=== PATIENT | female | born 2000 | race Caucasian/White ===

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

== ENCOUNTER 2022-03-02 16:43 | Inpatient (IN) | payer OTHER ==
[2022-03-02] MEDS ORDERED: DINOPROSTONE 10 MG INSERT.ER VAGINAL ONE (17:48)
--- NOTE | 2022-03-02 18:32 | P.HPOB ---
History of Present Illness H&P Date: 03/02/22 Chief Complaint: Cholestasis, gestational hypertension rule out preeclampsia This patient is a 22-year-old 1 para 0 female estimated date of confinement 03/23/2022 estimated gestational age 37-0/7 weeks who presented to the office earlier this afternoon and saw the obstetrical nurse for an OB visit. Patient's care is per Dr. Nugent and she didn't develop itching at approximately 35-5/7 weeks' gestation. At that time cholestasis labs were drawn and her bile acids were elevated and 44 which is consistent with cholestasis. Patient was also noted to have elevated blood pressures today. Biophysical profile the office was 6 out of 8. I discussed these findings with the patient and her significant other and reviewed the indications for delivery with cholestasis at 37 weeks. Recommend she proceed with Celestone treatment, Cervidil placement and trial of vaginal delivery. Review of Systems Genitourinary: Reports Menstruation: Reports amenorrhea Past Medical History Past Medical History: No Reported History History of Any Multi-Drug Resistant Organisms: None Reported Past Surgical History: No Surgical Hx Reported Past Anesthesia/Blood Transfusion Reactions: No Reported Reaction Past Psychological History: No Psychological Hx Reported Smoking Status: Former smoker, Vaper Past Alcohol Use History: None Reported Past Drug Use History: None Reported Medications and Allergies Home Medications Medication Instructions Recorded Confirmed Type Sertraline HCl [Zoloft] 100 mg PO HS 01/31/18 03/02/22 History Pnv No.95/Ferrous Fum/Folic AC 1 tab PO DAILY 03/02/22 03/02/22 History [ Multivitamin Tablet] Allergies Allergy/AdvReac Type Severity Reaction Status Date / Time No Known Allergies Allergy Verified 03/02/22 17:08 Exam Intake and Output 03/02/22 03/02/22 03/02/22 06:59 14:59 22:59 Other: Weight 97.522 kg - OBG Physical Exam Abdomen: bowel sounds normal, no diffuse tenderness, no bruit present, no guarding noted, no hepatomegaly, no splenomegaly, no mass Vulva: both: normal Vagina: normal moisture, no discharge Cervix: no lesion (Cervix is closed and thick), no discharge Uterus: enlarged Results blood work shows she is O positive, hepatitis B is negative, RPR is nonreactive, rubella is immune, most recent ultrasound shows estimated weight of 5 lbs. 10 oz. vertex presentation by last is on February 21 for 44.9. ALTs was mildly elevated. Group B strep was unavailable Assessment and Plan Assessment: This is a 22-year-old 1 para 0 female 37-0/7 weeks gestation with cholestasis and gestational hypertension. Labs are pending in regards to preeclampsia. Per current recommendations we plan to proceed with delivery at 37 weeks. Cervix is unfavorable therefore I'm going to give her a Cervidil and also Celestone at this time and anticipate vaginal delivery. (1) 37 weeks gestation of Current Visit: Yes Status: Acute Code(s): Z3A.37 - 37 WEEKS GESTATION OF SNOMED Code(s): 26853399 (2) Cholestasis during Current Visit: Yes Status: Acute Code(s): O26.619 - LIVER AND BILIARY TRACT DISORD IN , UNSP TRIMESTER; K83.1 - OBSTRUCTION OF BILE DUCT SNOMED Code(s): 858113077 (3) Gestational hypertension Current Visit: Yes Status: Acute Code(s): O13.9 - GESTATIONAL HTN W/O SI GNIFICANT PROTEINURIA, UNSP TRIMESTER SNOMED Code(s): 24984595
[2022-03-02] MEDS: BETAMET ACET-BETAMETH SOD PHOS 6 MG/ML MDV IM SCH (18:50)
[2022-03-02 19:30] LABS: Basophils # (A) 0.1 k/uL (0-0.2); Basophils % (A) 0 %; Eosinophils % (A) 0 %; HGB 10.6 gm/dL (11.4-16.0); Hypochromasia Slight; Lymphocytes # (A) 2.3 k/uL (1.0-4.8); Lymphocytes % (A) 18 %; MCH 28.4 pg (25.0-35.0); MCHC 31.2 g/dL (31.0-37.0); MCV 90.9 fL (80.0-100.0); Mean Platelet Volume 11.1; Monocytes # (A) 0.6 k/uL (0-1.0); Monocytes % (A) 5 %; Neutrophils # (A) 9.9 k/uL (1.3-7.7); Neutrophils % (A) 76 %; Platelet Count 244 k/uL (150-450); RBC 3.75 m/uL (3.80-5.40); RDW 13.9 % (11.5-15.5); WBC 13.1 k/uL (3.8-10.6)
[2022-03-02 19:36] LABS: ALT 29 U/L (4-34); AST 26 U/L (14-36); African American GFR (CKD) >90 (>60 ml/min/1.73 sqM); Blood Urea Nitrogen 12 mg/dL (7-17); LDH 532 U/L (313-618); Non-African American GFR(CKD) >90 (>60 ml/min/1.73 sqM); Uric Acid 4.9 mg/dL (3.7-7.4)
[2022-03-02 19:50] LABS: INR 0.8 (<1.2); Partial Thromboplastin Time 22.2 sec (22.0-30.0); Prothrombin Time 9.4 sec (9.0-12.0)
[2022-03-02 21:47] LABS: Appearance,Urine Cloudy (Clear); Bilirubin,Urine Negative (Negative); Blood,Urine Negative (Negative); Color,Urine Yellow; Glucose,Urine (UA) Negative (Negative); Hyaline Casts,Urine 3 /lpf (0-2); Ketones,Urine Negative (Negative); Leukocyte Esterase,Urine Negative (Negative); Mucus,Urine Many /hpf; Nitrite,Urine Negative (Negative); PH, Urine 6.5 (5.0-8.0); Protein,Urine 2+ (Negative); RBC,Urine 1 /hpf (0-5); Specific Gravity,Urine 1.031 (1.001-1.035); Squamous Epithelial Cell,Urine 1 /hpf (0-4); Urobilinogen,Urine <2.0 mg/dL (<2.0); WBC,Urine 3 /hpf (0-5)
[2022-03-02 21:54] LABS: Creatinine,Urine Random 230.8 mg/dL; Protein/Creatinine Ratio,Urine 0.412
[2022-03-03] MEDS ORDERED: TERBUTALINE 1 MG/ML VIAL SQ PRN (04:45)
[2022-03-03] MEDS ORDERED: CARBOPROST TROMETHAMINE 250 MCG/ML 1 ML AMP IM PRN (04:45)
[2022-03-03] MEDS ORDERED: OXYTOCIN 30 UNITS/500 ML NS 30 UNIT in SALINE 1 500ML.BAG IV SCH (04:45)
[2022-03-03] MEDS ORDERED: METHYLERGONOVINE 0.2 MG/ML 1 ML AMP IM PRN (04:45)
[2022-03-03] MEDS ORDERED: OXYTOCIN 10 UNIT/ML 1 ML VIAL IM PRN (04:45)
[2022-03-03] MEDS ORDERED: LIDOCAINE 0.5% (PF) 5 MG/ML (50 ML SDV) SQ PRN (04:45)
[2022-03-03] MEDS: LACTATED RINGERS 1,000 ML IV SCH ×3 (05:26→13:03)
[2022-03-03] MEDS: BETAMET ACET-BETAMETH SOD PHOS 6 MG/ML MDV IM SCH (06:55)
[2022-03-03] MEDS ORDERED: SODIUM CHLORIDE 0.9% 100 ML BAG ONE (11:47)
[2022-03-03] MEDS ORDERED: fentaNYL (PF) 50 MCG/ML 5 ML AMP ONE (11:47)
[2022-03-03] MEDS ORDERED: ROPIVACAINE 5MG/ML 20ML VIAL ONE (11:47)
[2022-03-03] MEDS: BUTORPHANOL 1 MG/ML 1 ML VIAL IV PRN ×3 (13:02→20:37)
[2022-03-03] MEDS ORDERED: AMPICILLIN 2,000 MG in SODIUM CHLORIDE 0.9% 100 ML IVPB STA (20:49)
--- NOTE | 2022-03-03 20:49 | P.PN ---
Progress Note - Text Progress Note Date: 03/03/22 heart tones are reassuring. Patient's cervix is remained 4-5 cm for quite a bit of time. Blood pressures remain elevated but are not anything need to be treated. I did offer this patient with section because I feel that she has not made descent or adequate dilation for quite a period of time. She wishes to continue and at this time I have no other indication to proceed with section. I have recommended we started on antibiotics appear she's been to be in labor for quite a long more period of time. She is agreeable to this.
[2022-03-03] MEDS ORDERED: CITRIC ACID-SODIUM CITRATE 15 ML CUP PO ONE (22:49)
[2022-03-03] MEDS ORDERED: OXYTOCIN 30 UNITS/500 ML NS BAG IV ONE (23:12)
[2022-03-03] MEDS ORDERED: MORPHINE SULFATE (PF) 0.3 MG/0.3 ML SYR ONE (23:12)
[2022-03-03] MEDS ORDERED: NALBUPHINE 10 MG/ML (1 ML AMP) ONE (23:12)
[2022-03-04] MEDS ORDERED: diphenhydrAMINE 50 MG/ML 1 ML VIAL IVP PRN (00:06)
[2022-03-04] MEDS ORDERED: ONDANSETRON 4 MG/2 ML VIAL IVP PRN (00:06)
[2022-03-04] MEDS ORDERED: ZOLPIDEM 5 MG TAB PO PRN (00:06)
[2022-03-04] MEDS ORDERED: SIMETHICONE 80 MG CHEWABLE PO PRN (00:06)
[2022-03-04] MEDS ORDERED: NALOXONE 0.4 MG/ML 1 ML VIAL IV PRN (00:06)
[2022-03-04] MEDS ORDERED: LANOLIN CREAM 5 GM TUBE TOPICAL PRN (00:06)
[2022-03-04] MEDS ORDERED: METOCLOPRAMIDE 5 MG/ML 2 ML VIAL IVP PRN (00:06)
[2022-03-04] MEDS ORDERED: OXYTOCIN 30 UNITS/500 ML NS 30 UNIT in SALINE 1 500ML.BAG IV SCH (00:15)
--- NOTE | 2022-03-04 00:21 | P.OP ---
Date of Procedure: 03/04/22 Preoperative Diagnosis: #1: 37 and one sevenths week intrauterine . #2: Cholestasis of #3: Gestational hypertension. #4: Failure to progress in labor Postoperative Diagnosis: #1: Same. #2: Straight occiput posterior presentation Procedure(s) Performed: Primary low transverse section Anesthesia: spinal Rural Route Mail Carrier #1: Cash Vásquez Rural Route Mail Carrier #2: Fidelina Forbes Pathology: other (Placenta) Condition: stable Disposition: observation Indications for Procedure: Please see dictated H&P for intimate details of this patient's admission. Brief summary this pleasant 22-year-old 1 para 0 female 37 and one sevenths weeks gestation who is admitted to labor and delivery for evaluation of hypertension. Patient also had a diagnosis of cholestasis. Patient's found to have gestational hypertension and persistent blood pressure elevations without evidence of preeclampsia. Patient and I discussed options and elected proceed with Cervidil induction of labor. Patient has Cervidil placed next morning she is fingertip dilated. This time she artificial rupture membranes for clear fluid. Labor is induced with Pitocin. Patient progresses and unfortunately has 2 epidurals placed without significant relief. Patient also does receive some IV Stadol. Patient progresses to approximately 5 cm dilated despite adequate labor and a prolonged period of time and the anterior lip of the cervix does begin to swell. Discussed options with patient and her partner we continue to watch for a while. Patient continues to have no progression the head and further dilation therefore she requests is hearing section. Patient does understand the surgery and risks and risks of infection, bleeding, possible injury bowel, bladder, vessels, and/or other organs. All the patient's questions are answered and a written consent is obtained. Operative Findings: This is a vigorous viable male Apgars were 9 and 9 delivery times 2331 hrs. Infant was in the straight occiput posterior presentation. There is a nuchal cord 1. Infant appeared grossly normal and had good cry. Description of Procedure: This patient had a Florence catheter placed to straight drain. She is subsequently taken to the operating room where she sat up and appropriate timeout is done. Spinal anesthetic is administered at this time. With adequate level of anesthesia she has abdominal prep and drape. Scalpels and taken Pfannenstiel skin incision is then made. Second scalpel is taken down the fascia the fascia scored with a knife. Fascial incision extended bilaterally using Nick scissors. Fascia is then dissected off the rectus muscles sharply. Rectus muscles are peritoneum identified and entered sharply. Peritoneal incision extended superior and inferior without difficulty. Bladder blade is then placed. Bladder peritoneum was taken sharply off the lower uterine segment. Scalpels and taken low transverse uterine incision is then made. Using a hemostat I enter the uterine cavity bluntly. There is loss of clear fluid. Infant is found to be in the straight occiput posterior presentation. Infant's head is then guided through the incision is a small amount. Mouth and nares are bulb suctioned. There is a nuchal cord which is reduced. With more fundal pressure we then deliver the rest this infant's body. This is a vigorous viable male infant Apgars are 9 and 9 delivery time is 2330 hrs. After delivery of the the umbilical cord is doubly clamped and cut appears to be trivascular. The placenta is then manually extracted intact. Uterus is then externalized and uterine incision demarcated with Carvajal clamps. Uterine incision is then closed using 0 Vicryl running locked fashion 2 layers. Excellent hemostasis is noted. Bladder peritoneum was then closed using a 3-0 Vicryl. Excess fluid is removed from the abdomen and pelvis. Uterus, tubes, ovaries appear normal for term gestation. Uterus placed back in the abdomen. Parietal peritoneum was then identified and closed using 0 Vicryl running fashion. Rectus muscles reapproximated in 0 Vicryl interrupted fashion. Fascial incision is closed using 0 PDS. Fascial incision is intact and hemostatic. Subcutaneous tissues and closed using a 3-0 Vicryl. Skin is and closed using wally. All counts are correct 3. No complications. and mother taken to the birthing suite in satisfactory condition.
[2022-03-04] MEDS ORDERED: AMPICILLIN 1,000 MG in SODIUM CHLORIDE 0.9% 50 ML IVPB SCH (01:00)
[2022-03-04] MEDS: LACTATED RINGERS 1,000 ML IV SCH ×3 (02:09→18:29)
[2022-03-04] MEDS: ACETAMINOPHEN TAB 500 MG TAB PO SCH ×3 (04:24→17:13)
[2022-03-04] MEDS: diphenhydrAMINE 25 MG CAP PO PRN ×3 (04:24→17:22)
[2022-03-04] MEDS: IBUPROFEN 600 MG TAB PO SCH ×4 (06:10→20:23)
--- NOTE | 2022-03-04 07:13 | P.PNOBGPC ---
Subjective - Subjective Patient reports: Reports appetite normal, Reports voiding normally, Reports pain well controlled, Reports ambulating normally : doing well Objective - Vital Signs Latest vital signs: Vital Signs Temp Pulse Resp BP Pulse Ox 03/04/22 04:46 86 18 03/04/22 01:10 98.2 F 86 18 120/64 97 03/04/22 00:55 98.2 F 90 18 132/71 97 03/04/22 00:40 97 18 129/64 97 03/04/22 00:25 100 19 149/83 97 03/04/22 00:10 97.7 F 97 19 136/78 97 03/03/22 23:55 97.7 F 104 H 16 156/95 97 Intake and Output 03/03/22 03/04/22 03/04/22 22:59 06:59 14:59 Output Total 800 1170 Balance -800 -1170 Output: Urine 800 1000 Estimated Blood Loss 170 Other: Voiding Method Indwelling Catheter - Exam Lungs: bilateral: normal Chest: Normal S1, Normal S2 Extremities: Present: normal Abdomen: Present: normal appearance, soft. Absent: distention, tenderness Incision: Present: normal, dry, intact Uterus: Present: normal, firm Assessment and Plan Assessment: Postoperative day #1. Patient is resting without new complaints. Vital signs are stable and she is afebrile. Uterus is firm nontender and her incision is intact and dry. CBC is pending. Plan today is to discontinue her catheter, encourage ambulation, allow the patient to shower, and continue routine postoperative care (1) 37 weeks gestation of Current Visit: Yes Status: Acute Code(s): Z3A.37 - 37 WEEKS GESTATION OF SNOMED Code(s): 94193025 (2) Cholestasis during Current Visit: Yes Status: Acute Code(s): O26.619 - LIVER AND BILIARY TRACT DISORD IN , UNSP TRIMESTER; K83.1 - OBSTRUCTION OF BILE DUCT SNOMED Code(s): 965600052 (3) Gestational hypertension Current Visit: Yes Status: Acute Code(s): O13.9 - GESTATIONAL HTN W/O SIGNIFICANT PROTEINURIA, UNSP TRIMESTER SNOMED Code(s): 60746258
[2022-03-04] MEDS: SENNOSIDES-DOCUSATE SODIUM 1 EACH TAB PO SCH ×2 (07:56→20:22)
--- NOTE | 2022-03-04 08:33 | P.PN ---
Progress Note - Text Progress Note Date: 03/04/22 Patient doing well. Denies weakness or paresthesia. Denies headache. Pain controlled Back spinal site c/d A/P POD#1 s/p w/ spinal duramorph - doing well
[2022-03-04] MEDS ORDERED: KETOROLAC 15 MG/ML 1 ML VIAL IVP SCH (12:00)
[2022-03-05] MEDS: ACETAMINOPHEN TAB 500 MG TAB PO SCH ×6 (00:06→22:38)
[2022-03-05] MEDS: LACTATED RINGERS 1,000 ML IV SCH (02:05)
[2022-03-05] MEDS: IBUPROFEN 600 MG TAB PO SCH ×3 (03:04→18:13)
[2022-03-05] MEDS: diphenhydrAMINE 25 MG CAP PO PRN (03:29)
--- NOTE | 2022-03-05 07:32 | P.PNOBGPC ---
Subjective - Subjective Patient reports: Reports appetite normal, Reports voiding normally, Reports pain well controlled, Reports ambulating normally : doing well Objective - Vital Signs Latest vital signs: Vital Signs Temp Pulse Resp BP Pulse Ox 03/05/22 00:20 98.5 F 93 16 135/83 98 03/04/22 19:40 97.8 F 98 16 143/99 97 03/04/22 16:00 98.6 F 78 18 148/90 95 03/04/22 13:33 98.1 F 102 H 18 110/66 95 03/04/22 08:00 98.2 F 88 18 129/78 99 Intake and Output 03/04/22 03/05/22 03/05/22 22:59 06:59 14:59 Output Total 1150 Balance -1150 Output: Urine 1150 Other: # Voids 1 # Bowel Movements 1 Assessment and Plan Assessment: Postoperative day #2. Patient is resting without new complaints. She did have some elevated blood pressures yesterday 148/90 and 143/99 but did not require medication. Incision is intact and dry. Patient is tolerating regular diet, ur inating without difficulty, and having adequate pain control. Plan today is to continue watching her blood pressures and continue routine postoperative care. At this point I do not think she needs oral antihypertensives and if her blood pressures remain okay she could potentially go home tomorrow. (1) 37 weeks gestation of Current Visit: Yes Status: Acute Code(s): Z3A.37 - 37 WEEKS GESTATION OF SNOMED Code(s): 36148443 (2) Cholestasis during Current Visit: Yes Status: Acute Code(s): O26.619 - LIVER AND BILIARY TRACT DISORD IN , UNSP TRIMESTER; K83.1 - OBSTRUCTION OF BILE DUCT SNOMED Code(s): 662140024 (3) Gestational hypertension Current Visit: Yes Status: Acute Code(s): O13.9 - GESTATIONAL HTN W/O SIGNIFICANT PROTEINURIA, UNSP TRIMESTER SNOMED Code(s): 61515510
[2022-03-05 08:14] LABS: Basophils % (A) 0 %; Eosinophils % (A) 0 %; HCT 28.9 % (34.0-46.0); HGB 9.2 gm/dL (11.4-16.0); Hypochromasia Slight; Lymphocytes # (A) 2.2 k/uL (1.0-4.8); Lymphocytes % (A) 12 %; MCH 29.1 pg (25.0-35.0); MCHC 31.8 g/dL (31.0-37.0); MCV 91.6 fL (80.0-100.0); Mean Platelet Volume 9.5; Monocytes # (A) 0.9 k/uL (0-1.0); Monocytes % (A) 5 %; Neutrophils # (A) 15.4 k/uL (1.3-7.7); Neutrophils % (A) 82 %; Platelet Count 243 k/uL (150-450); RBC 3.16 m/uL (3.80-5.40); RDW 14.7 % (11.5-15.5); WBC 18.9 k/uL (3.8-10.6)
[2022-03-05] MEDS: SENNOSIDES-DOCUSATE SODIUM 1 EACH TAB PO SCH ×2 (08:22→19:33)
[2022-03-06] MEDS: LABETALOL 100 MG TAB PO SCH ×3 (00:51→13:20)
[2022-03-06] MEDS: IBUPROFEN 600 MG TAB PO SCH ×4 (02:16→21:14)
[2022-03-06] MEDS: ACETAMINOPHEN TAB 500 MG TAB PO SCH ×5 (05:36→23:26)
--- NOTE | 2022-03-06 07:43 | P.PNOBGPC ---
Subjective - Subjective Principal diagnosis: Status post primary section postoperative day #3 Interval history: Patient is doing well. She denies any complaints. She is passing flatus and bowel movement. She is urinating without difficulty. Her pain is well- controlled with ibuprofen and Tylenol. Patient reports: Reports appetite normal, Reports voiding normally, Reports pain well controlled, Reports ambulating normally [place]: doing well, nursing well Objective - Vital Signs Latest vital signs: Vital Signs Temp Pulse Resp BP Pulse Ox 03/06/22 03:50 98.4 F 79 14 157/82 95 03/06/22 00:25 163/91 03/06/22 00:05 99.1 F 73 16 165/87 97 03/05/22 16:00 98.4 F 91 16 140/88 03/05/22 08:00 99.1 F 83 18 151/84 97 Intake and Output 03/05/22 03/06/22 03/06/22 22:59 06:59 14:59 Other: # Voids 1 2 - Exam Extremities: Present: normal. Absent: tenderness Abdomen: Present: normal appearance, soft. Absent: distention, tenderness Incision: Present: normal, dry, intact Uterus: Present: normal, firm. Absent: tenderness - Labs Labs: Abnormal Lab Results - Last 24 Hours (Table) 03/05/22 Range/Units 07:42 WBC 18.9 H (3.8-10.6) k/uL RBC 3.16 L (3.80-5.40) m/uL Hgb 9.2 L (11.4-16.0) gm/dL Hct 28.9 L (34.0-46.0) % Neutrophils # 15.4 H (1.3-7.7) k/uL Assessment and Plan Assessment: Status post primary section postoperative day #3 Elevated blood pressures -just started on labetalol Plan: Blood pressures were slightly elevated this morning in the 160s over 90s. She was started on labetalol 100 mg twice a day this morning. We'll observe at least till noon time today and make sure her blood pressures have come down. As long as her blood pressures are stable, will discharge home on labetalol later today. Patient states her itching is completely gone now.
--- NOTE | 2022-03-06 07:53 | P.MSEPDOC ---
Presenting Problems - Arrival Data Date of Arrival on Unit: 03/02/22 Time of Arrival on Unit: 17:00 Mode of Transport: Ambulatory - Complaint OB-Reason for Admission/Chief Complaint: PIH Comment: pt was sent over from the office for PI workup Medical History - Information : 1 Para: 0 Term: 0 : 0 Abortions: Spontaneous or Elective: 0 Number of Living Children: 0 - Gestational Age Gestational Age by CHARITY (wks/days): 37 Weeks and 2 Days Review of Systems - Review of Systems Constitutional: No problems Breast: No problems ENT: No problems Cardiovascular: No problems Respiratory: No problems Gastrointestinal: No problems Genitourinary: No problems Musculoskeletal: No problems Neurological: No problems Skin: No problems Vital Signs - Temperature Temperature: 98.4 F Temperature Source: Oral - Pulse Right Brachial Pulse Rate: 79 Pulse Assessment Method: Automatic Cuff - Respirations Respiratory Rate: 14 Oxygen Delivery Method: Room Air O2 Sat by Pulse Oximetry: 95 - Blood Pressure Right Arm Blood Pressure: 157/82 Blood Pressure Mean: 107 Blood Pressure Source: Automatic Cuff Physician Notification - Physician Notified New Order Received: Yes - Notification Comment Comment: RN notifed of Pt's elevated BP of 148/90 at 1600 and 151/92 at 1700. RN to call Dr. Vásquez if BP >160 SBP or >100 DBP. No further orders at this time. Maternal Triage Index - Maternal Triage Index Presenting for scheduled procedure w/no complaint: Yes - Scheduled/Requesting Priority 5 Scheduled/Requesting Priority 5: Yes Criteria Met for Priority 5: pt was sent over from the office for PIH workup Disposition - Disposition OB Disposition: Admit I agree with the RN Medical Screening Exam: Yes Case reviewed; plan agreed upon as documented in EMR&OBIX.: Yes Diagnosis: GESTATIONAL HTN W/O SIGNIFICANT PROTEINURIA, THIRD TRIMESTER
[2022-03-06 11:38] VITALS: RESP 16
[2022-03-06] MEDS: SENNOSIDES-DOCUSATE SODIUM 1 EACH TAB PO SCH ×3 (11:40→20:37)
[2022-03-06] MEDS ORDERED: LABETALOL 100 MG TAB PO STA (13:18)
[2022-03-06] MEDS: LABETALOL 200 MG TAB PO SCH (20:27)
[2022-03-06 23:32] VITALS: TEMP 98.7
[2022-03-07] MEDS: IBUPROFEN 600 MG TAB PO SCH ×3 (01:03→08:52)
[2022-03-07 08:06] VITALS: BP 133/84; PULSE 87
[2022-03-07] MEDS: SENNOSIDES-DOCUSATE SODIUM 1 EACH TAB PO SCH (08:07)
[2022-03-07] MEDS: LABETALOL 200 MG TAB PO SCH (08:52)
--- NOTE | 2022-03-07 08:58 | P.DS ---
Providers Date of admission: 03/02/22 17:44 Expected date of discharge: 03/07/22 Attending physician: Maria C Nugent Primary care physician: Stated None Hospital Course: This is a 22-year-old female 1 para 0 at 37-0/7 weeks who initially presented for Cervidil cervical ripening followed by oxytocin induction of labor due to cholestasis of and gestational hypertension. She did end up with a primary low transverse section on 03/03/2022 due to failure to progress. She delivered a viable male on 03/03/2022 with infant weight of 5 lbs. 9 oz. Her postoperative course initially was uncomplicated however she did start to have increased blood pressures after a couple days. She was placed on labetalol and this was increased to 200 mg twice a day. Today her blood pressures have normalized on the medication. She is passing flatus and bowel movement. She is breast-feeding. She does have a breast pump at home. Vital signs are stable. Abdomen is soft with positive bowel sounds 4. Incision is clean dry and intact with wally in place. Extremities show negative Homans. Impression is status post a very low transverse section postoperative day #4, gestational hypertension-blood pressures controlled on labetalol. Plan is to discharge home today. She will be given a prescription for labetalol 200 mg twice a day and ibuprofen as needed. She will continue Tylenol as needed. She is advised follow-up in the office within 1 week for a postoperative check and in 6 weeks for a check. Routine postoperative and instructions are given. She is advised to call the office if she has any further questions or concerns prior to her appointment time. Procedures: Cervidil cervical ripening Oxytocin induction of labor Primary low transverse section Patient Condition at Discharge: Stable Plan - Discharge Summary New Discharge Prescriptions: New Ibuprofen [Motrin] 600 mg PO Q6H #60 tab Labetalol [Trandate] 200 mg PO BID #28 tab Continue Sertraline HCl [Zoloft] 100 mg PO HS Pnv No.95/Ferrous Fum/Folic AC [ Multivitamin Tablet] 1 tab PO DAILY Discharge Medication List Sertraline HCl [Zoloft] 100 mg PO HS 01/31/18 [History] Pnv No.95/Ferrous Fum/Folic AC [ Multivitamin Tablet] 1 tab PO DAILY 03/02/22 [History] Ibuprofen [Motrin] 600 mg PO Q6H #60 tab 03/07/22 [Rx] Labetalol [Trandate] 200 mg PO BID #28 tab 03/07/22 [Rx] Follow up Appointment(s)/Referral(s): Maria C Nugent DO [Doctor of Osteopathic Medicine] - 04/12/22 11:30 am (c/s post op appt-03/09/22@11:30am) Activity/Diet/Wound Care/Special Instructions: Instructions 1. Do not begin any exercise program for 3 weeks. 2. Do not resume sexual relations for 3 weeks or longer if uncomfortable. 3. You may take tub baths or showers at any time. 4. You may use tampons if desired after 3 weeks. 5. Keep the area of episiotomy (stitches) clean and dry. 6. If you are not nursing, wear a good fitting, supportive bra during the day and limit fluid intake for at least 1 week to prevent breast engorgement. 7. Call the office, [phone], within the next week to make appointment for your 6 week checkup if it has not already been made. 8. Report any of the following occurrences to the doctor promptly: a. Heavy, excessive bleeding b. Chills, fever c. Burning or frequency of urination d. Pain or redness and breasts if nursing e. Increasing pain or swelling in episiotomy (stitches). In addition to the above instructions, the following additional should be followed: 1. No heavy lifting or straining (exercising) until after 6 week checkup. 2. Keep abdominal incision clean and dry: You may wear a dressing if more comfortable. 3. Make office appointment for 10 days after going home or as instructed by her doctor. Discharge Disposition: HOME SELF-CARE
== END 2022-03-07 12:40 | disposition home or self-care (01) | DRG 786 ==
LOC: FBPOP 16:43 → 4FBP 17:44
PROVIDERS: ADMIT Obstetrics & Gynecology; ATTEND Obstetrics & Gynecology
PROC: 3E0P7VZ Introduction of Hormone into Female Reproductive, Via Natural or Artificial Opening (ICD-10-PCS; 2022-03-02)
PROC: 00HU33Z Insertion of Infusion Device into Spinal Canal, Percutaneous Approach (ICD-10-PCS; 2022-03-03)
PROC: 3E0R3NZ Introduction of Analgesics, Hypnotics, Sedatives into Spinal Canal, Percutaneous Approach (ICD-10-PCS; 2022-03-03)
PROC: 3E033VJ Introduction of Other Hormone into Peripheral Vein, Percutaneous Approach (ICD-10-PCS; 2022-03-03)
PROC: 10907ZC Drainage of Amniotic Fluid, Therapeutic from Products of Conception, Via Natural or Artificial Opening (ICD-10-PCS; 2022-03-03)
PROC: 10D00Z1 Extraction of Products of Conception, Low, Open Approach (ICD-10-PCS; principal; 2022-03-04)
DX: O13.4 Gestational [pregnancy-induced] hypertension without significant proteinuria, complicating childbirth (principal); K83.1 Obstruction of bile duct; O26.62 Liver and biliary tract disorders in childbirth; O69.81X0 Labor and delivery complicated by cord around neck, without compression, not applicable or unspecified; O62.2 Other uterine inertia; Z3A.37 37 weeks gestation of pregnancy; Z28.310 Unvaccinated for COVID-19; Z37.0 Single live birth; Z79.899 Other long term (current) drug therapy; Z87.891 Personal history of nicotine dependence
CPT/HCPCS: 59025; 81001; 82565; 82570; 83615; 84156; 84450; 84460; 84520; 84550; 85025; 85384; 85610; 85730; 86850; 86900; 86901; 88307; 99213

== ENCOUNTER → 2022-03-02 | Outpatient (CLI) | payer OTHER ==
[2022-03-02 23:33] LABS: Uric Acid 4.7 mg/dL (2.9-7.7)
== END | disposition home or self-care (01) ==
LOC: LABWHC1 15:32
PROVIDERS: ATTEND Obstetrics & Gynecology
DX: K83.1 Obstruction of bile duct (principal)
CPT/HCPCS: 36415; 83615; 84450; 84460; 84550